=== PATIENT | male | born 1935 | race Caucasian/White ===

== ENCOUNTER 2016-07-01 13:00 | Outpatient (RCR) | payer MEDICARE ==
[~2016-07-01 13:00] MED LIST: /ADVA50050; ADV250INH INH; ASPI81TA63; ASPI81TA85 PO; ATOR40TA PO; BISO5TAB5 PO; FISH500C PO; OMEP20CA3 PO; PLAV75TA38 PO; PRAV40TA; PROA1AER INH; SEPT800T; TYLE325T5 PO; TYLENOL #3; VITA100037 PO; VITMTA PO; ZEBE5TAB; ZOFR20TA PO
== END 2016-07-06 ==
LOC: M PT 13:00
PROVIDERS: ATTEND Family Medicine
DX: Z51.89 Encounter for other specified aftercare (principal); M54.42 Lumbago with sciatica, left side

== ENCOUNTER 2016-07-21 09:18 | Outpatient (RCR) | payer MEDICARE | END 2016-08-03 | LOC: M PT 09:18 | PROVIDERS: ATTEND Family Medicine | DX: Z51.89 Encounter for other specified aftercare (principal); M54.42 Lumbago with sciatica, left side; M51.9 Unspecified thoracic, thoracolumbar and lumbosacral intervertebral disc disorder | CPT/HCPCS: 97110; G8978; G8979 ==

== ENCOUNTER → 2017-03-29 | Outpatient (CLI) | payer MEDICARE ==
[~2017-03-29] MED LIST changes: -ATOR40TA PO; +ATOR40TA75 PO; +PLAV1TAB2 PO; -PLAV75TA38 PO; -PROA1AER INH; +PROAAER10 INH; -VITA100037 PO; +VITA100067 PO
[2017-03-29 17:21] LABS: ALBUMIN 3.8 GM/DL (3.2-5.2); ALBUMIN/GLOBULIN RATIO 1.23 (1.00-1.93); BILIRUBIN,TOTAL 0.4 MG/DL (0.2-1.0); CREATININE FOR GFR 1.62 MG/DL (0.70-1.30); GLOMERULAR FILTRATION RATE 43.5 (>35); POTASSIUM SERUM 4.8 MEQ/L (3.5-5.1); TOTAL PROTEIN 6.9 GM/DL (6.4-8.2)
[2017-03-29 17:30] LABS: MEAN CORPUSCULAR HEMOGLOBIN 32.7 pg (27.0-33.0); MEAN CORPUSCULAR HGB CONC 33.3 g/dl (32.0-36.5); MEAN CORPUSCULAR VOLUME 98.1 fl (80.0-96.0); PLATELET COUNT, AUTOMATED 189 10^3/uL (150-450); RED CELL DISTRIBUTION WIDTH 13.2 % (11.5-14.5); WHITE BLOOD COUNT 6.9 10^3/uL (4.0-10.0)
== END ==
LOC: M LAB 15:46
PROVIDERS: ATTEND Physician Assistant
DX: I25.10 Atherosclerotic heart disease of native coronary artery without angina pectoris (principal); I10 Essential (primary) hypertension; E78.00 Pure hypercholesterolemia, unspecified

== ENCOUNTER → 2017-06-14 | Outpatient (CLI) | payer MEDICARE ==
[2017-06-14 20:44] LABS: URIC ACID 7.3 MG/DL (3.5-7.2)
== END ==
LOC: M WUC 16:34
DX: M79.675 Pain in left toe(s) (principal)
CPT/HCPCS: 84550

== ENCOUNTER → 2017-09-28 | Outpatient (CLI) | payer MEDICARE ==
[2017-09-28 11:14] LABS: ALBUMIN 3.8 GM/DL (3.2-5.2); ALBUMIN/GLOBULIN RATIO 1.27 (1.00-1.93); ALKALINE PHOSPHATASE 63 U/L (45-117); ALT/SGPT 28 U/L (12-78); ANION GAP 7 MEQ/L (8-16); AST/SGOT 21 U/L (7-37); BILIRUBIN,TOTAL 0.7 MG/DL (0.2-1.0); BLOOD UREA NITROGEN 20 MG/DL (7-18); CALCIUM LEVEL 8.8 MG/DL (8.8-10.2); CARBON DIOXIDE LEVEL 26 MEQ/L (21-32); CHLORIDE LEVEL 111 MEQ/L (98-107); CHOLESTEROL LEVEL 97 MG/DL (<200); CHOLESTEROL RISK RATIO 2.365 (<5); CREATININE FOR GFR 1.59 MG/DL (0.70-1.30); GLOMERULAR FILTRATION RATE 44.4 (>35); GLUCOSE, FASTING 112 MG/DL (70-100); HDL CHOLESTEROL 41 MG/DL (>40); LDL CHOLESTEROL 37.8 MG/DL (<100); NON-HDL-C 56 MG/DL; POTASSIUM SERUM 4.5 MEQ/L (3.5-5.1); SODIUM LEVEL 144 MEQ/L (136-145); TOTAL PROTEIN 6.8 GM/DL (6.4-8.2); TRIGLYCERIDES LEVEL 91 MG/DL (<150)
== END ==
LOC: M LAB 09:52
DX: I10 Essential (primary) hypertension (principal)
CPT/HCPCS: 80053

== ENCOUNTER → 2018-02-28 | Outpatient (CLI) | payer MEDICARE ==
[2018-02-28 11:08] LABS: HEMATOCRIT 40.3 % (42.0-52.0); HEMOGLOBIN 13.6 g/dl (13.5-17.5); MEAN CORPUSCULAR HEMOGLOBIN 33.1 pg (27.0-33.0); MEAN CORPUSCULAR HGB CONC 33.7 g/dl (32.0-36.5); MEAN CORPUSCULAR VOLUME 98.1 fl (80.0-96.0); PLATELET COUNT, AUTOMATED 238 10^3/uL (150-450); RED BLOOD COUNT 4.11 10^6/uL (4.30-6.10); RED CELL DISTRIBUTION WIDTH 13.3 % (11.5-14.5); WHITE BLOOD COUNT 7.2 10^3/uL (4.0-10.0)
[2018-02-28 11:51] LABS: ESTIMATED AVERAGE GLUCOSE 111 MG/DL (60-110); HEMOGLOBIN A1c 5.5 %
[2018-02-28 11:52] LABS: ALBUMIN/GLOBULIN RATIO 1.38 (1.00-1.93); ALKALINE PHOSPHATASE 61 U/L (45-117); ALT/SGPT 31 U/L (12-78); ANION GAP 9 MEQ/L (8-16); AST/SGOT 23 U/L (7-37); BILIRUBIN,TOTAL 0.9 MG/DL (0.2-1.0); BLOOD UREA NITROGEN 17 MG/DL (7-18); CARBON DIOXIDE LEVEL 26 MEQ/L (21-32); CHLORIDE LEVEL 107 MEQ/L (98-107); CHOLESTEROL LEVEL 109 MG/DL (<200); CHOLESTEROL RISK RATIO 2.056 (<5); CREATININE FOR GFR 1.46 MG/DL (0.70-1.30); GLUCOSE, FASTING 120 MG/DL (70-100); HDL CHOLESTEROL 53 MG/DL (>40); LDL CHOLESTEROL 35 MG/DL (<100); NON-HDL-C 56 MG/DL; POTASSIUM SERUM 4.6 MEQ/L (3.5-5.1); PROSTATIC SPECIFIC AG MONITOR 1.25 NG/ML (< 4.0); SODIUM LEVEL 142 MEQ/L (136-145); TOTAL PROTEIN 6.9 GM/DL (6.4-8.2); TRIGLYCERIDES LEVEL 104 MG/DL (<150)
[2018-02-28 22:43] LABS: TOTAL 25(OH) VITAMIN D 31.4 NG/ML (30.0-100.0)
== END ==
LOC: M LAB 10:14
DX: I10 Essential (primary) hypertension (principal); N40.1 Benign prostatic hyperplasia with lower urinary tract symptoms; J44.9 Chronic obstructive pulmonary disease, unspecified
CPT/HCPCS: 71046

== ENCOUNTER 2018-08-24 14:35 | Emergency (ER) | payer MEDICARE ==
[~2018-08-24] VITALS: Ht 175.3 cm; Wt 83.4 kg
[~2018-08-24 14:35] MED LIST changes: -/ADVA50050; +ADVA1AER2; -ZOFR20TA PO; +ZOFR4TAB16 PO
[2018-08-24] MEDS ORDERED: AMOX875T PO (14:47)
[2018-08-24] MEDS ORDERED: PRED20TA (14:47)
[2018-08-24 15:32] LABS: VENOUS BASE EXCESS 0.1 (-2.0-2.0); VENOUS HCO3 22.7 MEQ/L (23.0-27.0); VENOUS PARTIAL PRESSURE CO2 31.3 mmHg (38.0-50.0); VENOUS PARTIAL PRESSURE O2 86.7 mmHg (30.0-50.0); VENOUS PH 7.479 UNITS (7.330-7.430); VENOUS STANDARD HCO3 24.6 MEQ/L; VENOUS TOTAL CO2 23.7 MEQ/L (24.0-28.0)
[2018-08-24 15:33] LABS: BASO # 0.1 10^3/uL (0.0-0.2); BASO % 0.2 % (0.0-1.0); EOS # 0.1 10^3/uL (0.0-0.50); EOS % 0.6 % (0.0-3.0); HEMATOCRIT 38.6 % (42.0-52.0); HEMOGLOBIN 12.9 g/dl (13.5-17.5); LYMPH # 0.5 10^3/uL (1.5-4.5); LYMPH % 2.4 % (24.0-44.0); MEAN CORPUSCULAR HEMOGLOBIN 32.5 pg (27.0-33.0); MEAN CORPUSCULAR HGB CONC 33.4 g/dl (32.0-36.5); MEAN CORPUSCULAR VOLUME 97.2 fl (80.0-96.0); MONO # 1.3 10^3/uL (0.0-0.8); MONO % 6.4 % (0.0-5.0); NEUTROPHILS # 18.3 10^3/uL (1.8-7.7); NEUTROPHILS % 89.7 % (36.0-66.0); PLATELET COUNT, AUTOMATED 263 10^3/uL (150-450); RED BLOOD COUNT 3.97 10^6/uL (4.30-6.10); WHITE BLOOD COUNT 20.4 10^3/uL (4.0-10.0)
--- NOTE | 2018-08-24 15:35 | REP ---
Chest one-view HISTORY: Cough Comparison: 02/29/1980 Linear densities are present in the right upper lobe consistent with atelectasis or scar. The left lung is clear. The heart is normal in size. The pulmonary vasculature is normal in appearance. Impression: Right upper lobe atelectasis or scar. Electronically Signed by Elder Garcia MD 08/24/2018 03:26 P
[2018-08-24 15:49] LABS: INR 1.09; PROTHROMBIN TIME 14.2 SECONDS (12.1-14.4)
[2018-08-24 16:04] LABS: INFLUENZA A AMPLIFICATION NEGATIVE (NEGATIVE); INFLUENZA B AMPLIFICATION NEGATIVE (NEGATIVE)
[2018-08-24 16:05] LABS: ALBUMIN 3.5 GM/DL (3.2-5.2); ALT/SGPT 28 U/L (12-78); BILIRUBIN,DIRECT 0.2 MG/DL (0.0-0.2); BLOOD UREA NITROGEN 19 MG/DL (7-18); CALCIUM LEVEL 8.6 MG/DL (8.8-10.2); CARBON DIOXIDE LEVEL 24 MEQ/L (21-32); CHLORIDE LEVEL 105 MEQ/L (98-107); CPK CREATINE PHOSPHOKINASE 53 U/L (39-308); CREATININE FOR GFR 1.42 MG/DL (0.70-1.30); GLOMERULAR FILTRATION RATE 50.6 (>35); GLUCOSE, FASTING 148 MG/DL (70-100); MB/CK RELATIVE INDEX 3.02 (< OR =4); NT-PRO BNP 686 PG/ML (<450); POTASSIUM SERUM 4.4 MEQ/L (3.5-5.1); SODIUM LEVEL 138 MEQ/L (136-145); TOTAL PROTEIN 6.4 GM/DL (6.4-8.2); TROPONIN I < 0.02 NG/ML (< 0.10)
[2018-08-24] MEDS ORDERED: methylPREDNISolone INJ 125 MG/2 ML VIAL (J2930) IV ONE (17:00)
[2018-08-24] MEDS ORDERED: ACETAMINOPHEN TAB 650MG DOSE (2X325MG) PO ONE (17:00)
[2018-08-24] MEDS: IPRATROPIUM 0.5MG/ALBUTEROL 2.5MG INH SOL UD 3ML (DUONEB)(J7620) NEB PRN ×2 (17:05→17:36)
[2018-08-24] MEDS ORDERED: DOXYCYCLINE HYCLATE 100 MG in D5W MINI-BAG PLUS 100 ML IV ONE (17:15)
[2018-08-24] MEDS ORDERED: FISH1200 PO (18:47)
[2018-08-24] MEDS ORDERED: DOXY-350 PO (19:44)
[2018-08-24] MEDS ORDERED: MEDR4PAK PO (19:44)
[2018-08-24 20:00] VITALS: BP 122/57
--- NOTE | 2018-08-25 06:25 | ECGEPIP ---
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
== END 2018-08-24 20:11 | disposition home or self-care (01) ==
LOC: M ED 14:35
DX: J18.9 Pneumonia, unspecified organism (principal); J44.9 Chronic obstructive pulmonary disease, unspecified; I11.9 Hypertensive heart disease without heart failure; K21.9 Gastro-esophageal reflux disease without esophagitis; I25.10 Atherosclerotic heart disease of native coronary artery without angina pectoris; Z79.02 Long term (current) use of antithrombotics/antiplatelets; Z79.82 Long term (current) use of aspirin; Z79.51 Long term (current) use of inhaled steroids; Z79.899 Other long term (current) drug therapy; Z79.2 Long term (current) use of antibiotics
CPT/HCPCS: 71045; 80048; 80076; 82550; 82553; 82803; 83605; 83880; 84443; 84484; 85025; 85610; 87040; 87502; 93005; 93041; 94640; 96365; 96375; 99285; J2930

== ENCOUNTER → 2019-04-10 | Outpatient (CLI) | payer MEDICARE ==
[~2019-04-10] MED LIST changes: +AMOX875T PO; -BISO5TAB5 PO; +BISO5TAB9 PO; +DOXY-350 PO; +FISH1200 PO; +MEDR4PAK PO; -OMEP20CA3 PO; +OMEP20CA4 PO; +PRED20TA
[2019-04-10 10:31] LABS: HEMATOCRIT 41.9 % (42.0-52.0); HEMOGLOBIN 13.6 g/dl (13.5-17.5); MEAN CORPUSCULAR HEMOGLOBIN 32.6 pg (27.0-33.0); MEAN CORPUSCULAR HGB CONC 32.5 g/dl (32.0-36.5); MEAN CORPUSCULAR VOLUME 100.5 fl (80.0-96.0); PLATELET COUNT, AUTOMATED 176 10^3/uL (150-450); RED BLOOD COUNT 4.17 10^6/uL (4.30-6.10); WHITE BLOOD COUNT 10.2 10^3/uL (4.0-10.0)
[2019-04-10 11:01] LABS: ALBUMIN 3.8 GM/DL (3.2-5.2); BILIRUBIN,TOTAL 0.8 MG/DL (0.2-1.0); CHOLESTEROL RISK RATIO 2.333 (<5); CREATININE FOR GFR 1.35 MG/DL (0.70-1.30); GLOMERULAR FILTRATION RATE 53.5 (>35); POTASSIUM SERUM 5.3 MEQ/L (3.5-5.1); TOTAL PROTEIN 6.9 GM/DL (6.4-8.2)
== END ==
LOC: M LAB 09:44
PROVIDERS: ATTEND Physician Assistant
DX: I25.10 Atherosclerotic heart disease of native coronary artery without angina pectoris (principal); I10 Essential (primary) hypertension; E78.00 Pure hypercholesterolemia, unspecified

== ENCOUNTER 2019-04-29 15:32 | Observation (INO) | payer MEDICARE ==
[~2019-04-29] VITALS: Ht 172.7 cm; Wt 81.6 kg
[2019-04-29 16:17] LABS: BASO # 0.1 10^3/uL (0.0-0.2); BASO % 0.6 % (0.0-1.0); EOS # 0.4 10^3/uL (0.0-0.5); EOS % 5.2 % (0.0-3.0); HEMATOCRIT 38.4 % (42.0-52.0); HEMOGLOBIN 12.7 g/dl (13.5-17.5); LYMPH # 1.7 10^3/uL (1.5-5.0); LYMPH % 20.4 % (24.0-44.0); MEAN CORPUSCULAR HGB CONC 33.1 g/dl (32.0-36.5); MEAN CORPUSCULAR VOLUME 99.7 fl (80.0-96.0); MONO # 0.7 10^3/uL (0.0-0.8); MONO % 8.2 % (0.0-5.0); NEUTROPHILS # 5.5 10^3/uL (1.5-8.5); NEUTROPHILS % 65.5 % (36.0-66.0); PLATELET COUNT, AUTOMATED 227 10^3/uL (150-450); RED BLOOD COUNT 3.85 10^6/uL (4.30-6.10); WHITE BLOOD COUNT 8.4 10^3/uL (4.0-10.0)
[2019-04-29 16:38] LABS: ALBUMIN 3.8 GM/DL (3.2-5.2); ALT/SGPT 34 U/L (12-78); BILIRUBIN,DIRECT < 0.1 MG/DL (0.0-0.2); BILIRUBIN,TOTAL 0.5 MG/DL (0.2-1.0); BLOOD UREA NITROGEN 26 MG/DL (7-18); CARBON DIOXIDE LEVEL 28 MEQ/L (21-32); CHLORIDE LEVEL 109 MEQ/L (98-107); CK-MB VALUE MASS 1.2 NG/ML (<3.6); CPK CREATINE PHOSPHOKINASE 50 U/L (39-308); CREATININE FOR GFR 1.52 MG/DL (0.70-1.30); GLOMERULAR FILTRATION RATE 46.6 (>35); GLUCOSE, FASTING 118 MG/DL (70-100); POTASSIUM SERUM 4.6 MEQ/L (3.5-5.1); SODIUM LEVEL 144 MEQ/L (136-145); TOTAL PROTEIN 7.1 GM/DL (6.4-8.2); TROPONIN I < 0.02 NG/ML (< 0.10)
[2019-04-29 16:45] LABS: INR 1.04; PROTHROMBIN TIME 13.3 SECONDS (11.8-14.0)
[2019-04-29 16:46] LABS: PARTIAL THROMBOPLASTIN TIME 39.4 SECONDS (25.0-38.4)
[2019-04-29] MEDS ORDERED: FLUT1BLS2 INH (17:35)
[2019-04-29] MEDS ORDERED: VITA100054 PO (17:38)
[2019-04-29] MEDS ORDERED: NITR4TASL SL (17:38)
[2019-04-29] MEDS ORDERED: NITROGLYCERIN 0.4 MG SUBL TABLET SL PRN (18:45)
--- NOTE | 2019-04-29 19:27 | HPEPDOC ---
[facility] Medical History & Physical Date of Admission Apr 29, 2019 Date of Service: Apr 29, 2019 Attending Physician: TAYLOR CERVANTES MD History and Physical CHIEF COMPLAINT: Confusion HISTORY OF PRESENT ILLNESS: 83-year-old male with past medical history of coronary artery disease status post CABG, [place], hypertension and hyperlipidemia presents from home with confusion for the past 24-48 hours. As per , patient started having confusion consistent with decreased cognitive ability. She reports he usually does puzzles really well, was having significant difficulty, which she has never noticed before. He was also having difficulty remembering how to drive a car. Patient reports he is unclear of the symptoms. He's been expressing, currently is symptomatically. Patient and report that he has never had similar symptoms in the past, no history of TIA or stroke. Patient denies any weakness, numbness, tingling, speech difficulty, vision disturbances or headaches. He denies any shortness of breath, chest pain, nausea, vomiting or Doppler diarrhea at this time. 10 point review of system is negative except for above PAST MEDICAL HISTORY: 1. Coronary artery disease. 2. Myocardial ischemia. 3. Hypertension. 4. Hyperlipidemia PAST SURGICAL HISTORY: 1. Carotid endarterectomy. 2. Coronary artery bypass graft. 3. Cholecystectomy. SOCIAL HISTORY: Never smoker. Social use. Denies drug use FAMILY HISTORY: Positive for heart disease ALLERGIES: Please see below. HOME MEDICATIONS: Please see below. PHYSICAL EXAMINATION: VITAL SIGNS: Please see below. GENERAL: No distress HEENT: Normocephalic, atraumatic, moist mucous membranes NECK: Supple CARDIOVASCULAR EXAMINATION: S1, S2, no murmurs RESPIRATORY EXAMINATION: Clear to auscultation, no wheezing ABDOMINAL EXAMINATION: Soft, nontender, nondistended, positive bowel sounds EXTREMITIES: Range of motion intact SKIN: No rash NEUROLOGICAL EXAMINATION: Alert and oriented 3, no focal deficits PSYCHIATRIC EXAMINATION: Calm and cooperative LABORATORY DATA: See below. IMAGING: CT head pending read MICROBIOLOGY: Please see below. ASSESSMENT: 83-year-old male with past medical history of coronary artery disease, [place], status post CABG, hypertension, hyperlipidemia, presents with symptoms concerning for stroke. PLAN: 1. CVA. CT head read pending, MRI, MRA head, carotid Doppler, TTE ordered. PT/OT/swallow eval pending. Continue home aspirin, Plavix and statin. Neurology consulted by ED, eval pending Allow permissive hypertension 2. Coronary artery disease. Stable, continue him [facility] management (aspirin, Plavix, statin) 3. Hyperlipidemia. Continue statin. 4. Hypertension. Continue home meds DVT progresses: Heparin subcutaneous GI for flex: Not needed Vital Signs Vital Signs Date Time Temp Pulse Resp B/P (MAP) Pulse Ox O2 Delivery O2 Flow Rate FiO2 04/29/19 18:02 65 04/29/19 18:00 177/76 (109) 04/29/19 17:02 98 04/29/19 17:00 18 Room Air 04/29/19 15:33 96.9 Laboratory Data Labs 24H Laboratory Tests 2 04/29/19 15:46: Immature Granulocyte % (Auto) 0.1, Neutrophils (%) (Auto) 65.5, Lymphocytes (%) (Auto) 20.4L, Monocytes (%) (Auto) 8.2H, Eosinophils (%) (Auto) 5.2H, Basophils (%) (Auto) 0.6, Neutrophils # (Auto) 5.5, Lymphocytes # (Auto) 1.7, Monocytes # (Auto) 0.7, Eosinophils # (Auto) 0.4, Basophils # (Auto) 0.1, Nucleated Red Blood Cells % (auto) 0.0, Prothrombin Time 13.3, Prothromb Time International Ratio 1.04, Activated Partial Thromboplast Time 39.4H, Anion Gap 7L, Glomerular Filtration Rate 46.6, Calcium Level 9.0, Total Bilirubin 0.5, Direct Bilirubin < 0.1, Aspartate Amino Transf (AST/SGOT) 23, Alanine Aminotransferase (ALT/SGPT) 34, Alkaline Phosphatase 77, Total Creatine Kinase 50, Creatine Kinase MB 1.2, Creatine Kinase MB Relative Index 2.40, Troponin I < 0.02, Total Protein 7.1, Albumin 3.8, Albumin/Globulin Ratio 1.15, Thyroid Stimulating Hormone (TSH) 5.170H 04/29/19 17:02: Bedside Prothrombin Time INR 1.0, Prothrombin Time (MISC) 11.9L, Bedside Glucose (Misc Panel) 98 CBC/BMP Laboratory Tests 04/29/19 15:46 Home Medications Scheduled Aspirin (Aspir 81) 81 Mg Tab, 81 MG PO DAILY Atorvastatin Calcium (Atorvastatin Calcium) 40 Mg Tab, 40 MG PO QHS Cholecalciferol (Vitamin D3) (Vitamin D3) 1,000 Unit Capsule, 1,000 UNIT PO DAILY Clopidogrel Bisulfate (Plavix) 75 Mg Tab, 75 MG PO DAILY Fluticasone Propion/Salmeterol (Wixela 250-50 Inhub) 1 Each Blst.w.dev, 1 EACH INH BID Multivitamins (Thera M Plus Tablet) 1 Tab Tab, 1 TAB PO DAILY Scheduled PRN Albuterol Sulfate (Proair Hfa) 108 Mcg/Act Aer, 2 PUFFS INH Q4H PRN for SHORTNESS OF BREATH Nitroglycerin (Nitrostat) 0.4 Mg Tab.subl, 0.4 MG SL Q5MP PRN for CHEST PAIN Allergies Coded Allergies: No Known Allergies (Unverified , 04/29/19) A-FIB/CHADSVASC A-FIB History Current/History of A-Fib/PAF?: No TAYLOR CERVANTES MD Apr 29, 2019 19:22
--- NOTE | 2019-04-29 19:28 | ECGEPIP ---
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
[2019-04-29] MEDS ORDERED: WIXELA INH SCH (21:00)
--- NOTE | 2019-04-29 22:34 | REPVR ---
PROCEDURE INFORMATION: Exam: US Duplex Bilateral Extracranial Arteries Exam date and time: 04/29/2019 9:42 PM Age: 83 years old Clinical history: Altered mental status/memory loss; Confusion or disorientation; Prior surgery; Surgery date: 6+ months; Surgery type: RT endarterectomy; Additional info: CVA TECHNIQUE: Imaging protocol: Real-time Duplex ultrasound scan of the bilateral carotid and vertebral arteries combining oneil scale, color Doppler and spectral waveform analysis. Bilateral exam. COMPARISON: No relevant prior studies available. FINDINGS: Right common carotid artery: Unremarkable. No occlusion or significant stenosis. Waveforms are normal. Peak systolic velocity of 117.8 cm/s. Right internal carotid artery: Unremarkable. No occlusion or significant stenosis. Waveforms are normal. Peak systolic velocity of 154.9 cm/s, but without any significant plaque visualized in the grayscale images. Right ICA/CCA ratio: 1.31. Within normal limits. Right external carotid artery: No significant stenosis in the origin. Peak systolic velocity of 188.8 cm/s, but without any significant plaque visualized in the grayscale images. Right vertebral artery: Unremarkable. Antegrade flow. Peak systolic velocity of 47.6 cm/s. Left common carotid artery: Calcified atherosclerotic plaque is seen causing mild stenosis in the grayscale images. Waveforms are normal. Peak systolic velocity of 81.1 cm/s. Left internal carotid artery: Calcified atherosclerotic plaque is noted in the proximal portion of the left internal carotid artery, causing moderate stenosis based on peak systolic velocity criteria. Waveforms are normal. Peak systolic velocity of 181.7 cm/s. Left ICA/CCA ratio: 2.24, which is abnormally increased. Left external carotid artery: No significant stenosis in the origin. Peak systolic velocity of 254.1 cm/s, but without any significant plaque visualized in the grayscale images. Left vertebral artery: Unremarkable. Antegrade flow. Peak systolic velocity of 69.6 cm/s. IMPRESSION: 1. Moderate (50-69%) stenosis of the proximal portion of the left internal carotid artery. 2. Mild (<50%) stenosis of the left common carotid artery. 3. No significant stenosis or occlusion of the right carotid arteries. COMMENT: Carotid Stenosis Reference using SRU criteria: Mild: less than 50% stenosis. ICA PSV is less than 125 cm/second and plaque or intimal thickening is visible. Moderate: 50-69% stenosis. ICA PSV is 125 to 230 cm/second and plaque is visible. Severe: 70-94% stenosis. ICA PSV is more than 230 cm/second and visible plaque and lumen narrowing are seen. Near occlusion: 95-99% stenosis. ICA PSV is variable and significant plaque and luminal narrowing are seen. Occluded: 100% stenosis. No flow identified. Electronically signed by: Brock Latham On 04/29/2019 22:34:25 PM
[2019-04-29 23:30] VITALS: BP 160/70
[2019-04-29] MEDS: ATORVASTATIN 20 MG TAB PO SCH (23:47)
[2019-04-29] MEDS: HEPARIN SOD (PORCINE) 5000 UNITS/ML VIAL SC SCH (23:48)
[2019-04-30 01:09] LABS: MAGNESIUM LEVEL 2.1 MG/DL (1.8-2.4)
[2019-04-30 04:00] VITALS: BP 110/51
[2019-04-30 07:56] LABS: ALBUMIN 3.4 GM/DL (3.2-5.2); BILIRUBIN,TOTAL 0.6 MG/DL (0.2-1.0); CALCIUM LEVEL 8.6 MG/DL (8.8-10.2); CREATININE FOR GFR 1.62 MG/DL (0.70-1.30); GLOMERULAR FILTRATION RATE 43.3 (>35); MAGNESIUM LEVEL 2.1 MG/DL (1.8-2.4); POTASSIUM SERUM 4.4 MEQ/L (3.5-5.1); TOTAL PROTEIN 6.4 GM/DL (6.4-8.2)
[2019-04-30 08:00] VITALS: BP 136/64
--- NOTE | 2019-04-30 08:00 | REP ---
Clinical: Cerebrovascular accident . Comparison: 08/24/2018 . Findings: The mediastinum and cardiac silhouette are stable and within normal limits for portable technique. Prior sternotomy and CABG again noted. The lung nunes demonstrate chronic changes without acute consolidation, effusion, or pneumothorax. Skeletal structures are intact. Impression: No acute cardiopulmonary process appreciated. Electronically Signed by Chacorta Godinez MD 04/30/2019 07:52 A
[2019-04-30] MEDS: IPRATROPIUM 0.5MG/ALBUTEROL 2.5MG INH SOL UD 3ML (DUONEB)(J7620) NEB SCH ×4 (08:17→18:39)
[2019-04-30 08:21] LABS: HEMATOCRIT 35.3 % (42.0-52.0); HEMOGLOBIN 11.4 g/dl (13.5-17.5); MEAN CORPUSCULAR HEMOGLOBIN 31.9 pg (27.0-33.0); MEAN CORPUSCULAR HGB CONC 32.3 g/dl (32.0-36.5); MEAN CORPUSCULAR VOLUME 98.9 fl (80.0-96.0); PLATELET COUNT, AUTOMATED 192 10^3/uL (150-450); RED BLOOD COUNT 3.57 10^6/uL (4.30-6.10); WHITE BLOOD COUNT 7.2 10^3/uL (4.0-10.0)
--- NOTE | 2019-04-30 08:39 | REP ---
REASON: Altered mental status which has now resolved. There are no priors for comparison. There is an area of decreased density in the left parietal lobe near the frontal parietal watershed area. The ventricles and sulci are within normal limits. There is no evidence of an acute intracranial hemorrhage. There is no shift if the midline structures. There are no extra-axial fluid collections. There are carotid siphon calcifications. Scattered diffuse lucency is seen throughout the deep cerebral white matter. IMPRESSION: 1. Age undetermined non-hemorrhagic infarction is suspected on the left in the frontal parietal watershed region. 2. Deep white matter ischemic changes. 3. Other findings as described above. Electronically Signed by Isma Chaney DO 04/30/2019 12:11 P
[2019-04-30] MEDS: NS 1,000 ML IV SCH (09:00)
[2019-04-30] MEDS: ASPIRIN 81 MG ENTERIC TAB PO SCH (09:17)
[2019-04-30] MEDS: HEPARIN SOD (PORCINE) 5000 UNITS/ML VIAL SC SCH ×2 (09:17→21:23)
[2019-04-30] MEDS: MULTIVITAMINS/MINERALS THERAP 1 TAB PO SCH (09:17)
[2019-04-30] MEDS: CLOPIDOGREL 75 MG TAB PO SCH (09:17)
[2019-04-30] MEDS: VITAMIN D 1,000 INTERNATIONAL UNITS TABLET PO SCH (09:17)
[2019-04-30 12:00] VITALS: BP 144/68
[2019-04-30 16:00] VITALS: BP 138/88
[2019-04-30] MEDS: ADVAIR HFA 115/21MCG INHALER INH SCH (18:46)
[2019-04-30 20:00] VITALS: BP 156/58
--- NOTE | 2019-04-30 20:25 | REPVR ---
PROCEDURE INFORMATION: Exam: MR Head Without Contrast Exam date and time: 04/30/2019 7:24 PM Age: 83 years old Clinical history: Alteration of consciousness; Transient alteration of awareness; Patient HX: Confusion, loss of cognitive function that have since subsided; Additional info: CVA TECHNIQUE: Imaging protocol: MR of the head without contrast. COMPARISON: CT Head without contrast 2019-04-29 16:17 FINDINGS: Brain: Evolving acute small to medium-sized left parietal cortical and subcortical and deep white matter infarct. Moderate cerebral volume loss and chronic white matter disease. Couple small acute infarcts in the posterior left perisylvian cortex in the left parietal and temporal lobes. Couple small basal ganglia and periventricular chronic lacunar infarcts. No midline shift, mass, fluid collection, or evidence of hemorrhage. Ventricles: Normal. No ventriculomegaly. Bones/joints: Unremarkable. Soft tissues: Unremarkable. Sinuses: Normal as visualized. No acute sinusitis. Mastoid air cells: Trace left mastoid effusion. Orbits: Evidence of previous ocular surgery with intraocular lens implants. IMPRESSION: 1. Evolving acute small to medium-sized left parietal cortical and subcortical and deep white matter infarct. 2. Couple small acute infarcts in the posterior left perisylvian cortex in the left parietal and temporal lobes. Electronically signed by: Errol Jimenes On 04/30/2019 20:25:22 PM
--- NOTE | 2019-04-30 20:27 | REPVR ---
PROCEDURE INFORMATION: Exam: MR Angiogram Head Without Contrast, Arteries Exam date and time: 04/30/2019 7:24 PM Age: 83 years old Clinical history: Cognitive deficit; Type not specified; Patient HX: Confusion, loss of cognitive function that have since subsided; Additional info: CVA TECHNIQUE: Imaging protocol: MR angiogram head without contrast. Exam focused on the arteries. 3D rendering: MIP reconstructed images were created and reviewed. COMPARISON: CT Head without contrast 2019-04-29 16:17 FINDINGS: Right internal carotid artery: Mild cavernous and supraclinoid right internal carotid artery atherosclerotic plaque and stenosis. Right anterior cerebral artery: Unremarkable. No occlusion or significant stenosis. No aneurysm. Right middle cerebral artery: Unremarkable. No occlusion or significant stenosis. No aneurysm. Right posterior cerebral artery: Unremarkable. No occlusion or significant stenosis. No aneurysm. Right vertebral artery: Unremarkable. No occlusion or significant stenosis. No aneurysm. Left internal carotid artery: Mild cavernous and supraclinoid left internal carotid artery atherosclerotic plaque and stenosis. Left anterior cerebral artery: Unremarkable. No occlusion or significant stenosis. No aneurysm. Left middle cerebral artery: Unremarkable. No occlusion or significant stenosis. No aneurysm. Left posterior cerebral artery: Unremarkable. No occlusion or significant stenosis. No aneurysm. Left vertebral artery: Unremarkable. No occlusion or significant stenosis. No aneurysm. Basilar artery: Fenestrated basilar artery normal anterior communicating artery. IMPRESSION: No acute abnormality. Major branches included in the [id number] are patent. Electronically signed by: Errol Jimenes On 04/30/2019 20:27:10 PM
--- NOTE | 2019-04-30 20:27 | IPNPDOC ---
Date Seen The patient was seen on 04/30/19. Progress Note HISTORY OF PRESENT ILLNESS: 83-year-old male with past medical history of coronary artery disease status post CABG, [place], hypertension and hyperlipidemia presents from home with confusion for the past 24-48 hours. As per , patient started having confusion consistent with decreased cognitive ability. She reports he usually does puzzles really well, was having significant difficulty, which she has never noticed before. He was also having difficulty remembering how to drive a car. Patient reports he is unclear of the symptoms. He's been expressing, currently is symptomatically. Patient and report that he has never had similar symptoms in the past, no history of TIA or stroke. Patient denies any weakness, numbness, tingling, speech difficulty, vision disturbances or headaches. He denies any shortness of breath, chest pain, nausea, vomiting or Doppler diarrhea at this time. 04/30/2019 Patient reports improvement in confusion, without any complaints at time, tolerating diet, working with PT. 10 point review of system is negative except for above HOME MEDICATIONS: Please see below. PHYSICAL EXAMINATION: VITAL SIGNS: Please see below. GENERAL: No distress HEENT: Normocephalic, atraumatic, moist mucous membranes NECK: Supple CARDIOVASCULAR EXAMINATION: S1, S2, no murmurs RESPIRATORY EXAMINATION: Clear to auscultation, no wheezing ABDOMINAL EXAMINATION: Soft, nontender, nondistended, positive bowel sounds EXTREMITIES: Range of motion intact SKIN: No rash NEUROLOGICAL EXAMINATION: Alert and oriented 3, no focal deficits PSYCHIATRIC EXAMINATION: Calm and cooperative LABORATORY DATA: See below. IMAGING: CT head pending read MICROBIOLOGY: Please see below. ASSESSMENT: 83-year-old male with past medical history of coronary artery disease, [place], status post CABG, hypertension, hyperlipidemia, presents with symptoms concerning for stroke. PLAN: 1. CVA. CT head with age undetermined stroke, MRI and MRA head pending, carotid Doppler with moderate stenosis, TTE pending PT/OT/swallow eval appreciated Continue home aspirin, Plavix and statin. Allow permissive hypertension 2. Coronary artery disease. Stable, continue medical management (aspirin, Plavix, statin) 3. Hyperlipidemia. Continue statin. 4. Hypertension. Continue home meds DVT progresses: Heparin subcutaneous GI for flex: Not needed VS, I&O, 24H, Fishbone Vital Signs/I&O Vital Signs Date Time Temp Pulse Resp B/P (MAP) Pulse Ox O2 Delivery O2 Flow Rate FiO2 04/30/19 16:00 98.2 62 17 138/88 (105) 92 Room Air I&O- Last 24 Hours up to 6 AM 04/30/19 06:00 Intake Total 0 ml Balance 0 ml Laboratory Data 24H LABS Laboratory Tests 2 04/30/19 04:33: Nucleated Red Blood Cells % (auto) 0.0 04/30/19 04:34: Anion Gap 7L, Glomerular Filtration Rate 43.3, Calcium Level 8.6L, Magnesium Level 2.1, Total Bilirubin 0.6, Aspartate Amino Transf (AST/SGOT) 16, Alanine Aminotransferase (ALT/SGPT) 27, Alkaline Phosphatase 59, Total Protein 6.4, Albumin 3.4, Albumin/Globulin Ratio 1.13 CBC/BMP Laboratory Tests 04/30/19 04:33 04/30/19 04:34 TAYLOR CERVANTES MD Apr 30, 2019 20:27
[2019-04-30] MEDS: ATORVASTATIN 20 MG TAB PO SCH (21:23)
[2019-04-30 23:35] VITALS: BP 134/60
[2019-05-01] MEDS: NS 1,000 ML IV SCH ×2 (01:04→13:02)
[2019-05-01 04:00] VITALS: BP 145/65
[2019-05-01 05:42] LABS: HEMATOCRIT 34.5 % (42.0-52.0); MEAN CORPUSCULAR HEMOGLOBIN 32.2 pg (27.0-33.0); MEAN CORPUSCULAR HGB CONC 31.9 g/dl (32.0-36.5); MEAN CORPUSCULAR VOLUME 100.9 fl (80.0-96.0); PLATELET COUNT, AUTOMATED 163 10^3/uL (150-450); RED BLOOD COUNT 3.42 10^6/uL (4.30-6.10); WHITE BLOOD COUNT 5.2 10^3/uL (4.0-10.0)
[2019-05-01 06:10] LABS: CALCIUM LEVEL 8.1 MG/DL (8.8-10.2); CREATININE FOR GFR 1.43 MG/DL (0.70-1.30); FREE T4 0.93 NG/DL (0.76-1.46); MAGNESIUM LEVEL 2.1 MG/DL (1.8-2.4); POTASSIUM SERUM 4.5 MEQ/L (3.5-5.1)
[2019-05-01] MEDS: ADVAIR HFA 115/21MCG INHALER INH SCH ×2 (07:18→18:26)
[2019-05-01] MEDS: IPRATROPIUM 0.5MG/ALBUTEROL 2.5MG INH SOL UD 3ML (DUONEB)(J7620) NEB SCH ×3 (07:18→18:26)
[2019-05-01 08:00] VITALS: BP 128/62
[2019-05-01] MEDS: ASPIRIN 81 MG ENTERIC TAB PO SCH (08:42)
[2019-05-01] MEDS: HEPARIN SOD (PORCINE) 5000 UNITS/ML VIAL SC SCH ×2 (08:42→21:02)
[2019-05-01] MEDS: VITAMIN D 1,000 INTERNATIONAL UNITS TABLET PO SCH (08:42)
[2019-05-01] MEDS: CLOPIDOGREL 75 MG TAB PO SCH (08:42)
[2019-05-01] MEDS: MULTIVITAMINS/MINERALS THERAP 1 TAB PO SCH (08:42)
[2019-05-01 12:00] VITALS: BP 128/48
[2019-05-01] MEDS: METOPROLOL TART 12.5 MG PER 1/2 TAB PO SCH ×2 (13:02→21:02)
[2019-05-01 16:00] VITALS: BP 130/58
--- NOTE | 2019-05-01 18:11 | ECHO ---
DATE OF PROCEDURE: 05/01/2019 REFERRING PHYSICIAN: Dr. Luna Chandler INDICATION: Acute stroke, unspecified. HEIGHT: 173 cm WEIGHT: 82 kg 2D MEASUREMENTS: Aortic root: 3.3 cm Left atrium: 4.1 cm Ventricular septum: 0.90 cm Posterior wall: 0.93 cm Left ventricle diastole: 5.4 cm LVOT: 2.2 cm Inferior vena cava: 1.2 cm with more than 50% respiratory variation. DOPPLER MEASUREMENTS: Aortic valve velocity: 113 cm/s LVOT velocity: 60.9 cm/s LVOT VTI: 15.3 cm No aortic stenosis. No aortic regurgitation. No mitral regurgitation. No mitral stenosis. Mitral E velocity: 84.4 cm/s Mitral A velocity: 101 cm/s Mitral deceleration time: 120 cm/s Trace tricuspid regurgitation. Mild pulmonic regurgitation. Pulmonary artery systolic pressure 33 mmHg by pulmonary acceleration time method. DESCRIPTION: Rhythm was sinus with frequent premature ventricular contractions (PVCs). This was a moderately technically difficult echocardiogram. This was a 2D, M-mode, color flow Doppler and pulse wave Doppler examination that included mitral annular tissue Doppler. CONCLUSIONS: 1. Normal left ventricle internal dimensions and wall thickness. Normal regional left ventricle (LV) wall motion and wall thickening. Normal LV systolic function. Left ventricular ejection fraction (LVEF) 65% by visual estimate. Grade 1 LV diastolic dysfunction. Suggestive of elevated left ventricle end-diastolic pressure (D-notch mitral valve M-mode pattern suggests elevated left ventricular end diastolic pressure). 2. Very mild aortic valve sclerosis of a three-cuspid aortic valve. 3. Mild mitral annular calcification. No mitral regurgitation. 4. Suggestive of very mild elevation of pulmonary artery systolic pressure. 5. Suggestive of normal central venous pressure. 6. No definite cardiac source of systemic embolism identified.
--- NOTE | 2019-05-01 18:50 | IPNPDOC ---
Date Seen The patient was seen on 05/01/19. Progress Note HISTORY OF PRESENT ILLNESS: 83-year-old male with past medical history of coronary artery disease status post CABG, [place], hypertension and hyperlipidemia presents from home with confusion for the past 24-48 hours. As per , patient started having confusion consistent with decreased cognitive ability. She reports he usually does puzzles really well, was having significant difficulty, which she has never noticed before. He was also having difficulty remembering how to drive a car. Patient reports he is unclear of the symptoms. He's been expressing, currently is symptomatically. Patient and report that he has never had similar symptoms in the past, no history of TIA or stroke. Patient denies any weakness, numbness, tingling, speech difficulty, vision disturbances or headaches. He denies any shortness of breath, chest pain, nausea, vomiting or Doppler diarrhea at this time. 04/30/2019 Patient reports improvement in confusion, without any complaints at time, tolerating diet, working with PT. 05/01/2019 Patient comfortable, without any complaints, continues to have mild confus ion/difficulty word finding. He denies any weakness, evaluated and cleared by physical therapy. 10 point review of system is negative except for above HOME MEDICATIONS: Please see below. PHYSICAL EXAMINATION: VITAL SIGNS: Please see below. GENERAL: No distress HEENT: Normocephalic, atraumatic, moist mucous membranes NECK: Supple CARDIOVASCULAR EXAMINATION: S1, S2, no murmurs RESPIRATORY EXAMINATION: Clear to auscultation, no wheezing ABDOMINAL EXAMINATION: Soft, nontender, nondistended, positive bowel sounds EXTREMITIES: Range of motion intact SKIN: No rash NEUROLOGICAL EXAMINATION: Alert and oriented 3, no focal deficits PSYCHIATRIC EXAMINATION: Calm and cooperative LABORATORY DATA: See below. IMAGING: CT head pending read MICROBIOLOGY: Please see below. ASSESSMENT: 83-year-old male with past medical history of coronary artery disease, [place], status post CABG, hypertension, hyperlipidemia, presents with symptoms concerning for stroke. PLAN: 1. Acute evolving CVA CT head with age undetermined stroke, MRI with acute evolving CVA in the left parietal cortical and subcortical deep white matter, carotid Doppler with moderate stenosis, TTE normal. Patient with poor oral intake with acute kidney injury, likely due to dehydration, hypotension as possible etiology for acute stroke as it is in the watershed area. PT/OT/swallow eval appreciated Continue home aspirin, Plavix and statin. Neurology eval pending 2. Coronary artery disease. continue medical management (aspirin, Plavix, statin) Having nonsustained V. tach, start low-dose beta estefania, metoprolol 12.5 mg twice a day. 3. Hyperlipidemia. Continue statin. 4. Hypertension. Continue home meds DVT progresses: Heparin subcutaneous GI for flex: Not needed VS, I&O, 24H, Fishbone Vital Signs/I&O Vital Signs Date Time Temp Pulse Resp B/P (MAP) Pulse Ox O2 Delivery O2 Flow Rate FiO2 05/01/19 16:00 97.3 57 18 130/58 (82) 98 Room Air I&O- Last 24 Hours up to 6 AM 05/01/19 06:00 Intake Total 1360 ml Output Total 150 ml Balance 1210 ml Laboratory Data 24H LABS Laboratory Tests 2 05/01/19 05:17: Nucleated Red Blood Cells % (auto) 0.0, Anion Gap 7L, Glomerular Filtration Rate 50.0, Calcium Level 8.1L, Magnesium Level 2.1, Free Thyroxine 0.93 CBC/BMP Laboratory Tests 05/01/19 05:17 TAYLOR CERVANTES MD May 01, 2019 18:50
[2019-05-01 20:00] VITALS: BP 146/67
[2019-05-01] MEDS: ATORVASTATIN 20 MG TAB PO SCH (21:02)
[2019-05-02] MEDS: NS 1,000 ML IV SCH (01:22)
[2019-05-02 04:00] VITALS: BP 144/67
[2019-05-02 05:38] LABS: HEMATOCRIT 34.5 % (42.0-52.0); HEMOGLOBIN 10.9 g/dl (13.5-17.5); MEAN CORPUSCULAR HEMOGLOBIN 32.4 pg (27.0-33.0); MEAN CORPUSCULAR HGB CONC 31.6 g/dl (32.0-36.5); MEAN CORPUSCULAR VOLUME 102.7 fl (80.0-96.0); PLATELET COUNT, AUTOMATED 163 10^3/uL (150-450); RED BLOOD COUNT 3.36 10^6/uL (4.30-6.10); WHITE BLOOD COUNT 5.9 10^3/uL (4.0-10.0)
[2019-05-02 06:02] LABS: CALCIUM LEVEL 8.1 MG/DL (8.8-10.2); CREATININE FOR GFR 1.33 MG/DL (0.70-1.30); GLOMERULAR FILTRATION RATE 54.4 (>35); POTASSIUM SERUM 4.4 MEQ/L (3.5-5.1)
--- NOTE | 2019-05-02 06:28 | CR ---
DATE OF CONSULTATION: 05/01/2019 REFERRING PHYSICIAN: Dr. Luna Chandler REASON FOR CONSULTATION: Stroke. HISTORY OF PRESENT ILLNESS: Robert Montez is an 83-year-old man with history of coronary artery disease, coronary artery bypass graft, hypertension, and dyslipidemia who presented to [facility] due to confusion. The patient lives with his sister. The sister was present in the room. The patient feels significantly better compared to when he came in. He states that he dropped off his sister at the store and was trying to park the car, but did not park the car properly. When he tried starting the car, he could not start the car. He had the car parked in and reverse when he turned it off and when he tried turning it back on it would not start and he could not figure it out. It was unusual for him. He usually does crossword puzzles really well, but had significant difficulty that day. His sister brought him to [facility]. He was having trouble remembering as well. He denies any numbness, weakness of arms and legs, dysphagia, dysarthria, diplopia, urinary incontinence, falls, or loss of consciousness. DIAGNOSTIC STUDIES: MRI scan of brain showed a small-medium left parietal acute ischemic stroke. MRA of brain was unremarkable. Carotid ultrasound showed 50-69% left internal carotid artery stenosis and normal right internal carotid artery. His telemetry showed sinus rhythm with a few PVCs. Hemoglobin was 11.4, platelet count was 163, creatinine 1.43, and TSH 5.17. PAST MEDICAL HISTORY: Coronary artery disease, dyslipidemia, hypertension, right carotid endarterectomy in [id number], coronary artery bypass graft, cholecystectomy. SOCIAL HISTORY: He never smoked. He denies alcohol or illicit drugs. FAMILY HISTORY: Significant for heart disease. He lives with his sister. REVIEW OF SYSTEMS: All systems were reviewed and found to be noncontributory except as mentioned in history of present illness. HOME MEDICATIONS: Aspirin 81 mg by mouth daily, Plavix 75 mg by mouth daily, Lipitor 40 mg by mouth daily, multivitamin one tablet by mouth daily, albuterol inhaler, and nitroglycerin. ALLERGIES: None. PHYSICAL EXAMINATION: Temperature 97.3, pulse 57, respiratory rate 18, blood pressure 130/58, 98% saturation on room air. Heart: Regular rate and rhythm. Lungs: Clear to auscultation. Abdomen: Soft, nontender, nondistended. No pedal edema. No musculoskeletal abnormalities. No rash. No signs of meningeal irritation. The patient is awake, alert, oriented to name of place, person, city, state, country, president, month, year, day of week. He was unable to tell me the exact date. He is able to read and write. Normal speech, comprehension and repetition. Extraocular muscles are intact. No nystagmus. Visual nunes are full to confrontation. No facial weakness. Tongue and uvula are midline. 5/5 strength in all four extremities. Deep tendon flexes 2+ throughout. Normal sensation throughout. Gait was not tested. No dysmetria. ASSESSMENT: 1. Left parietal small-medium acute ischemic stroke. 2. 50-69% left internal carotid artery stenosis and patient is status post right carotid endarterectomy in the past. 3. Dyslipidemia and coronary artery disease. PLAN: 1. Continue aspirin 81 mg by mouth daily and Plavix 75 mg by mouth daily. 2. Lipitor 40 mg by mouth daily. 3. Follow with our office in 2-3 weeks after hospital discharge. He will follow up with his vascular surgeon at [facility] who has been following his left carotid stenosis for several years.
[2019-05-02] MEDS: IPRATROPIUM 0.5MG/ALBUTEROL 2.5MG INH SOL UD 3ML (DUONEB)(J7620) NEB SCH ×2 (07:13→13:44)
[2019-05-02] MEDS: ADVAIR HFA 115/21MCG INHALER INH SCH (07:14)
[2019-05-02 08:00] VITALS: BP 129/61
[2019-05-02] MEDS ORDERED: SLF 3 ML SYR IV PRN (08:30)
[2019-05-02 09:02] VITALS: BP 129/61
[2019-05-02] MEDS: HEPARIN SOD (PORCINE) 5000 UNITS/ML VIAL SC SCH (09:02)
[2019-05-02] MEDS: ASPIRIN 81 MG ENTERIC TAB PO SCH (09:02)
[2019-05-02] MEDS: VITAMIN D 1,000 INTERNATIONAL UNITS TABLET PO SCH (09:02)
[2019-05-02] MEDS: CLOPIDOGREL 75 MG TAB PO SCH (09:02)
[2019-05-02] MEDS: METOPROLOL TART 12.5 MG PER 1/2 TAB PO SCH (09:02)
[2019-05-02] MEDS: MULTIVITAMINS/MINERALS THERAP 1 TAB PO SCH (09:03)
--- NOTE | 2019-05-02 13:45 | DS.PDOC ---
Discharge Summary General Date of Admission Apr 29, 2019 at 15:33 Date of Discharge 05/02/2019 Attending Physician: TAYLOR CERVANTES MD Discharge Summary PROCEDURES PERFORMED DURING STAY: None. ADMITTING DIAGNOSES: 1. Acute CVA. DISCHARGE DIAGNOSES: 1. Acute CVA. COMPLICATIONS/CHIEF COMPLAINT: Cad;Hld;Hx Of Cabg;Hypertension;Myocardial Ischema. HISTORY OF PRESENT ILLNESS: 83-year-old male, past medical history of coronary artery disease status post CABG, hypertension, hyperlipidemia and myocardial ischemia was admitted for symptoms concerning of stroke. He was having symptoms of confusion for the past 2-3 days, CT head in the ED showed age undetermined stroke. Subsequent MRI showed acute evolving stroke in the left parietal cortical and subcortical deep white matter. Patient was taken aspirin, Plavix, atorvastatin, the outpatient setting, had poor oral intake and acute kidney injury upon presentation. Given stroke's location in the watershed area, possibly due to transient hypotension. Patient evaluated by neurology, no changes made to patient's regimen, he is to continue aspirin, Plavix, atorvastatin with outpatient follow-up in neurology and vascular surgeon for his carotid stenosis. Patient was evaluated by cleared by physical therapy, clinically and hemodynamically stable for discharge today. HOSPITAL COURSE: As above. DISCHARGE MEDICATIONS: Please see below. ALLERGIES: Please see below. PHYSICAL EXAMINATION: VITAL SIGNS: Please see below. GENERAL: No distress HEENT: Normocephalic, atraumatic, moist mucous membranes NECK: Supple CARDIOVASCULAR EXAMINATION: S1, S2, no murmurs RESPIRATORY EXAMINATION: Clear to auscultation, no wheezing ABDOMINAL EXAMINATION: Soft, nontender, nondistended, positive bowel sounds EXTREMITIES: Range of motion intact SKIN: No rash NEUROLOGICAL EXAMINATION: Alert and oriented 3, no focal deficits PSYCHIATRIC EXAMINATION: Calm and cooperative LABORATORY DATA: Please see below. IMAGING: MRI with acute evolving stroke in the left parietal cortical and subcortical deep white matter PROGNOSIS: Fair ACTIVITY: As tolerated. DIET: Cardiac DISCHARGE PLAN: Patient will follow up with neurologist, vascular surgeon and PCP DISPOSITION: Home. DISCHARGE INSTRUCTIONS: 1. As above. DISCHARGE CONDITION: Stable. TIME SPENT ON DISCHARGE: Greater than 36 minutes. Vital Signs/I&Os Vital Signs Date Time Temp Pulse Resp B/P (MAP) Pulse Ox O2 Delivery O2 Flow Rate FiO2 05/02/19 09:02 65 129/61 05/02/19 08:00 97.8 18 99 Room Air I&O- Last 24 Hours up to 6 AM 05/02/19 05:59 Intake Total 1080 ml Output Total 3000 ml Balance -1920 ml Laboratory Data Labs 24H Laboratory Tests 2 05/02/19 05:20: Nucleated Red Blood Cells % (auto) 0.0, Anion Gap 3L, Glomerular Filtration Rate 54.4, Calcium Level 8.1L, Phosphorus Level 3.0, Magnesium Level 2.0 CBC/BMP Laboratory Tests 05/02/19 05:20 Discharge Medications Scheduled Aspirin (Aspir 81) 81 Mg Tab, 81 MG PO DAILY, (Reported) Atorvastatin Calcium (Atorvastatin Calcium) 40 Mg Tab, 40 MG PO QHS, (Reported) Cholecalciferol (Vitamin D3) (Vitamin D3) 1,000 Unit Capsule, 1,000 UNIT PO D AILY, (Reported) Clopidogrel Bisulfate (Plavix) 75 Mg Tab, 75 MG PO DAILY, (Reported) Fluticasone Propion/Salmeterol (Wixela 250-50 Inhub) 1 Each Blst.w.dev, 1 EACH INH BID, (Reported) Multivitamins (Thera M Plus Tablet) 1 Tab Tab, 1 TAB PO DAILY, (Reported) Scheduled PRN Albuterol Sulfate (Proair Hfa) 108 Mcg/Act Aer, 2 PUFFS INH Q4H PRN for SHORTNESS OF BREATH, (Reported) Nitroglycerin (Nitrostat) 0.4 Mg Tab.subl, 0.4 MG SL Q5MP PRN for CHEST PAIN, (Reported) Allergies Coded Allergies: No Known Allergies (Unverified , 04/29/19) TAYLOR CERVANTES MD May 02, 2019 13:45
[2019-05-02] MEDS ORDERED: SLF 3 ML SYR IV SCH (14:00)
== END 2019-05-02 15:16 | disposition home or self-care (01) ==
LOC: M ED 15:32 → M ED INP 15:33 → M PCU 23:06
PROVIDERS: ADMIT Internal Medicine; ATTEND Internal Medicine
DX: I63.9 Cerebral infarction, unspecified (principal); I25.10 Atherosclerotic heart disease of native coronary artery without angina pectoris; Z95.1 Presence of aortocoronary bypass graft; I10 Essential (primary) hypertension; E78.49 Other hyperlipidemia; I25.6 Silent myocardial ischemia; N17.9 Acute kidney failure, unspecified; Z79.82 Long term (current) use of aspirin; Z79.899 Other long term (current) drug therapy
CPT/HCPCS: 36415; 70450; 70544; 70551; 71045; 80048; 80053; 80076; 82550; 82553; 83735; 84100; 84439; 84443; 84484; 85025; 85027; 85610; 85730; 86850; 86900; 86901; 92526; 92610; 93005; 93041; 93306; 93880; 94640; 94760; 96360; 96361; 96372; 97161; 99285; G0378

== ENCOUNTER → 2020-03-27 | Outpatient (CLI) | payer MEDICARE ==
[~2020-03-27] MED LIST changes: -ASPI81TA85 PO; +ASPI81TA86 PO; +BISO5TAB14 PO; -BISO5TAB9 PO; +FLUT1BLS2 INH; +NITR4TASL SL; +OMEP1CAP73 PO; -OMEP20CA4 PO; +VITA100054 PO
[2020-03-27 16:10] LABS: HEMATOCRIT 39.2 % (42.0-52.0); HEMOGLOBIN 12.5 g/dl (13.5-17.5); MEAN CORPUSCULAR HEMOGLOBIN 31.9 pg (27.0-33.0); MEAN CORPUSCULAR HGB CONC 31.9 g/dl (32.0-36.5); PLATELET COUNT, AUTOMATED 226 10^3/uL (150-450); RED BLOOD COUNT 3.92 10^6/uL (4.30-6.10); WHITE BLOOD COUNT 7.9 10^3/uL (4.0-10.0)
[2020-03-27 16:31] LABS: CALCIUM LEVEL 8.9 MG/DL (8.8-10.2); CREATININE FOR GFR 1.5 MG/DL (0.70-1.30); GLOMERULAR FILTRATION RATE 47.2 (>35); POTASSIUM SERUM 4.7 MEQ/L (3.5-5.1)
== END ==
LOC: M LAB 15:08
PROVIDERS: ATTEND Physician Assistant
DX: I25.10 Atherosclerotic heart disease of native coronary artery without angina pectoris (principal)

== ENCOUNTER → 2020-12-26 | Outpatient (CLI) | payer MEDICARE ==
[2020-12-26 12:49] LABS: HEMATOCRIT 40.4 % (42.0-52.0); HEMOGLOBIN 13.3 g/dl (13.5-17.5); MEAN CORPUSCULAR HEMOGLOBIN 32.7 pg (27.0-33.0); MEAN CORPUSCULAR HGB CONC 32.9 g/dl (32.0-36.5); MEAN CORPUSCULAR VOLUME 99.3 fl (80.0-96.0); PLATELET COUNT, AUTOMATED 206 10^3/uL (150-450); RED BLOOD COUNT 4.07 10^6/uL (4.30-6.10); WHITE BLOOD COUNT 7.5 10^3/uL (4.0-10.0)
[2020-12-26 13:23] LABS: ALBUMIN 4.2 GM/DL (3.2-5.2); BILIRUBIN,TOTAL 0.7 MG/DL (0.2-1.0); CALCIUM LEVEL 9.4 MG/DL (8.8-10.2); CHOLESTEROL RISK RATIO 2.551 (<5); CREATININE FOR GFR 1.55 MG/DL (0.70-1.30); GLOMERULAR FILTRATION RATE 45.4 (>35); POTASSIUM SERUM 5.1 MEQ/L (3.5-5.1); TOTAL PROTEIN 7.3 GM/DL (6.4-8.2)
== END ==
LOC: M LAB 11:41
PROVIDERS: ATTEND Physician Assistant
DX: I25.10 Atherosclerotic heart disease of native coronary artery without angina pectoris (principal)

== ENCOUNTER 2021-05-15 07:20 | Inpatient (IN) | payer MEDICARE ==
[~2021-05-15] VITALS: Ht 172.7 cm; Wt 84.7 kg
[2021-05-15 08:36] LABS: BASO # 0.1 10^3/uL (0.0-0.2); BASO % 0.7 % (0.0-1.0); EOS # 0.4 10^3/uL (0.0-0.5); EOS % 4.9 % (0.0-3.0); HEMATOCRIT 37.7 % (42.0-52.0); HEMOGLOBIN 12.1 g/dl (13.5-17.5); LYMPH # 0.9 10^3/uL (1.5-5.0); MEAN CORPUSCULAR HEMOGLOBIN 32.4 pg (27.0-33.0); MEAN CORPUSCULAR HGB CONC 32.1 g/dl (32.0-36.5); MEAN CORPUSCULAR VOLUME 101.1 fl (80.0-96.0); MONO # 0.6 10^3/uL (0.0-0.8); MONO % 7.9 % (2.0-8.0); NEUTROPHILS # 5.5 10^3/uL (1.5-8.5); NEUTROPHILS % 74.2 % (36.0-66.0); RED BLOOD COUNT 3.73 10^6/uL (4.30-6.10); WHITE BLOOD COUNT 7.4 10^3/uL (4.0-10.0)
[2021-05-15 09:02] LABS: RSV AMPLIFICATION NEGATIVE (NEGATIVE)
[2021-05-15 09:06] LABS: ALBUMIN 3.6 GM/DL (3.2-5.2); BILIRUBIN,DIRECT 0.1 MG/DL (0.0-0.2); BILIRUBIN,TOTAL 0.6 MG/DL (0.2-1.0); CK-MB VALUE MASS 2.7 NG/ML (<3.6); MB/CK RELATIVE INDEX 1.71 (< OR =4); TOTAL PROTEIN 6.6 GM/DL (6.4-8.2)
[2021-05-15 09:40] LABS: INR 0.98; PROTHROMBIN TIME 13.4 SECONDS (12.7-14.5)
[2021-05-15 09:41] LABS: PARTIAL THROMBOPLASTIN TIME 38.9 SECONDS (25.9-37.0)
[2021-05-15 11:37] LABS: CK-MB VALUE MASS 2.4 NG/ML (<3.6); MB/CK RELATIVE INDEX 3.38 (< OR =4)
[2021-05-15] MEDS ORDERED: D31000TA2 PO (11:38)
[2021-05-15] MEDS ORDERED: ASPI81TA26 PO (11:38)
[2021-05-15] MEDS ORDERED: HOME MED LIST COMPLETE! XX SCH (11:40)
[2021-05-15] MEDS ORDERED: NITROGLYCERIN 0.4 MG SUBL TABLET SL PRN (12:55)
[2021-05-15] MEDS ORDERED: ALBUTEROL 90 MCG/ACT 8GM HFA INHALER INH PRN (12:55)
[2021-05-15 17:45] VITALS: BP 145/79
[2021-05-15] MEDS: ASPIRIN 81MG ENTERIC TABLET PO SCH (18:37)
[2021-05-15] MEDS: MULTIVITAMINS/MINERALS THERAP 1 TAB PO SCH (18:38)
[2021-05-15] MEDS: VITAMIN D 1,000 INTERNATIONAL UNITS TABLET PO SCH (18:38)
[2021-05-15 20:00] VITALS: BP 136/70
[2021-05-15] MEDS: ADVAIR HFA 115/21MCG INHALER INH SCH (20:02)
[2021-05-15] MEDS: ATORVASTATIN 20 MG TAB PO SCH (20:26)
[2021-05-16 00:20] VITALS: BP 143/60
[2021-05-16 04:00] VITALS: BP 119/56
[2021-05-16 06:30] LABS: HEMATOCRIT 31.9 % (42.0-52.0); HEMOGLOBIN 10.4 g/dl (13.5-17.5); MEAN CORPUSCULAR HEMOGLOBIN 32.2 pg (27.0-33.0); MEAN CORPUSCULAR HGB CONC 32.6 g/dl (32.0-36.5); MEAN CORPUSCULAR VOLUME 98.8 fl (80.0-96.0); PLATELET COUNT, AUTOMATED 186 10^3/uL (150-450); RED BLOOD COUNT 3.23 10^6/uL (4.30-6.10); WHITE BLOOD COUNT 7.2 10^3/uL (4.0-10.0)
[2021-05-16 06:34] LABS: CALCIUM LEVEL 8.7 MG/DL (8.8-10.2); CREATININE FOR GFR 1.29 MG/DL (0.70-1.30); GLOMERULAR FILTRATION RATE 56.1 (>35); POTASSIUM SERUM 4.5 MEQ/L (3.5-5.1)
[2021-05-16] MEDS: ADVAIR HFA 115/21MCG INHALER INH SCH ×2 (07:15→19:23)
[2021-05-16 08:00] VITALS: BP 145/67
[2021-05-16] MEDS: CLOPIDOGREL 75 MG TAB PO SCH (08:57)
[2021-05-16] MEDS: ASPIRIN 81MG ENTERIC TABLET PO SCH (08:57)
[2021-05-16] MEDS: MULTIVITAMINS/MINERALS THERAP 1 TAB PO SCH (08:57)
[2021-05-16] MEDS: VITAMIN D 1,000 INTERNATIONAL UNITS TABLET PO SCH (08:57)
[2021-05-16 12:00] VITALS: BP 160/67
[2021-05-16 12:49] LABS: CK-MB VALUE MASS 1.5 NG/ML (<3.6); MB/CK RELATIVE INDEX 1.74 (< OR =4)
[2021-05-16 16:00] VITALS: BP 161/66
[2021-05-16 20:05] VITALS: BP 143/71
[2021-05-16] MEDS: ATORVASTATIN 20 MG TAB PO SCH (20:16)
[2021-05-17 00:05] VITALS: BP 175/77
[2021-05-17 04:00] VITALS: BP 112/56
[2021-05-17 06:20] LABS: HEMATOCRIT 33.7 % (42.0-52.0); HEMOGLOBIN 10.9 g/dl (13.5-17.5); MEAN CORPUSCULAR HEMOGLOBIN 32.4 pg (27.0-33.0); MEAN CORPUSCULAR HGB CONC 32.3 g/dl (32.0-36.5); MEAN CORPUSCULAR VOLUME 100.3 fl (80.0-96.0); PLATELET COUNT, AUTOMATED 176 10^3/uL (150-450); RED BLOOD COUNT 3.36 10^6/uL (4.30-6.10); WHITE BLOOD COUNT 8.5 10^3/uL (4.0-10.0)
[2021-05-17 06:37] LABS: CALCIUM LEVEL 8.5 MG/DL (8.8-10.2); CREATININE FOR GFR 1.43 MG/DL (0.70-1.30); GLOMERULAR FILTRATION RATE 49.8 (>35); POTASSIUM SERUM 4.2 MEQ/L (3.5-5.1)
[2021-05-17] MEDS: ADVAIR HFA 115/21MCG INHALER INH SCH ×2 (07:11→20:00)
[2021-05-17 08:27] VITALS: BP 134/65
[2021-05-17] MEDS: CLOPIDOGREL 75 MG TAB PO SCH (09:30)
[2021-05-17] MEDS: MULTIVITAMINS/MINERALS THERAP 1 TAB PO SCH (09:30)
[2021-05-17] MEDS: ASPIRIN 81MG ENTERIC TABLET PO SCH (09:30)
[2021-05-17] MEDS: VITAMIN D 1,000 INTERNATIONAL UNITS TABLET PO SCH (09:30)
[2021-05-17 12:54] VITALS: BP 136/90
[2021-05-17] MEDS: ATORVASTATIN 20 MG TAB PO SCH (20:07)
[2021-05-17 22:00] VITALS: BP 164/76
[2021-05-18 06:00] VITALS: BP 112/60
[2021-05-18] MEDS: ADVAIR HFA 115/21MCG INHALER INH SCH (08:49)
[2021-05-18 09:03] LABS: CALCIUM LEVEL 8.5 MG/DL (8.8-10.2); CREATININE FOR GFR 1.49 MG/DL (0.70-1.30); GLOMERULAR FILTRATION RATE 47.5 (>35); POTASSIUM SERUM 4.6 MEQ/L (3.5-5.1)
[2021-05-18] MEDS: ASPIRIN 81MG ENTERIC TABLET PO SCH (10:32)
[2021-05-18] MEDS: VITAMIN D 1,000 INTERNATIONAL UNITS TABLET PO SCH (10:32)
[2021-05-18] MEDS: CLOPIDOGREL 75 MG TAB PO SCH (10:32)
[2021-05-18] MEDS: MULTIVITAMINS/MINERALS THERAP 1 TAB PO SCH (10:32)
== END 2021-05-18 11:42 | disposition home or self-care (01) | DRG 312 ==
LOC: M ED 07:20 → M ED INP 12:54 → ENRESERV 16:50 → M PCU 17:35 → M MSPAV 05-17 17:37
PROVIDERS: ADMIT Internal Medicine; ATTEND Internal Medicine
DX: R55 Syncope and collapse (principal); J44.9 Chronic obstructive pulmonary disease, unspecified; I10 Essential (primary) hypertension; E78.5 Hyperlipidemia, unspecified; I25.10 Atherosclerotic heart disease of native coronary artery without angina pectoris; I25.2 Old myocardial infarction; Z95.5 Presence of coronary angioplasty implant and graft; Z20.822 Contact with and (suspected) exposure to COVID-19; Z79.82 Long term (current) use of aspirin; Z79.899 Other long term (current) drug therapy; S00.93XA Contusion of unspecified part of head, initial encounter; S60.221A Contusion of right hand, initial encounter; S60.222A Contusion of left hand, initial encounter; S70.01XA Contusion of right hip, initial encounter; W10.8XXA Fall (on) (from) other stairs and steps, initial encounter; Y92.009 Unspecified place in unspecified non-institutional (private) residence as the place of occurrence of the external cause

== ENCOUNTER → 2021-06-01 | Outpatient (CLI) | payer MEDICARE ==
[~2021-06-01] MED LIST changes: +ASPI81TA26 PO; +D31000TA2 PO
[2021-06-01 10:37] LABS: HEMATOCRIT 35.8 % (42.0-52.0); HEMOGLOBIN 11.5 g/dl (13.5-17.5); MEAN CORPUSCULAR HEMOGLOBIN 32.8 pg (27.0-33.0); MEAN CORPUSCULAR HGB CONC 32.1 g/dl (32.0-36.5); PLATELET COUNT, AUTOMATED 245 10^3/uL (150-450); RED BLOOD COUNT 3.51 10^6/uL (4.30-6.10); WHITE BLOOD COUNT 7.9 10^3/uL (4.0-10.0)
[2021-06-01 11:08] LABS: HEMOGLOBIN A1c 5.7 %
[2021-06-01 11:11] LABS: ALBUMIN 3.8 GM/DL (3.2-5.2); BILIRUBIN,TOTAL 0.9 MG/DL (0.2-1.0); CALCIUM LEVEL 8.9 MG/DL (8.8-10.2); CHOLESTEROL RISK RATIO 2.51 (<5); CREATININE FOR GFR 1.58 MG/DL (0.70-1.30); GLOMERULAR FILTRATION RATE 44.4 (>35); POTASSIUM SERUM 5.1 MEQ/L (3.5-5.1); PROSTATIC SPECIFIC AG MONITOR 1.3 NG/ML (< 4.00); THYROID STIMULATING HORMONE 7.12 uIU/ML (0.358-3.740); TOTAL PROTEIN 6.8 GM/DL (6.4-8.2)
== END ==
LOC: M LAB 10:01 → M EKG 10:01
PROVIDERS: ATTEND Family Medicine
DX: I10 Essential (primary) hypertension (principal); R53.83 Other fatigue; I44.0 Atrioventricular block, first degree; I44.7 Left bundle-branch block, unspecified

== ENCOUNTER → 2021-06-25 | Outpatient (REF) | payer MEDICARE, OTHER | LOC: M LAB REF 17:00 | PROVIDERS: ATTEND Dermatology | DX: D23.71 Other benign neoplasm of skin of right lower limb, including hip (principal) ==

== ENCOUNTER → 2021-07-07 | Outpatient (REF) | payer MEDICARE, OTHER ==
[~2021-07-07] MED LIST changes: -D31000TA2 PO; +VITA100093 PO
== END ==
LOC: M LAB REF 13:47
PROVIDERS: ATTEND Physician Assistant
DX: Z51.89 Encounter for other specified aftercare (principal)

== ENCOUNTER → 2022-04-20 | Outpatient (CLI) | payer MEDICARE ==
[~2022-04-20] MED LIST changes: +CLOP75TA99 PO; -DOXY-350 PO; +DOXY-444 PO; -PLAV1TAB2 PO
[2022-04-20 10:26] LABS: HEMATOCRIT 41.6 % (42.0-52.0); HEMOGLOBIN 13.4 g/dl (13.5-17.5); MEAN CORPUSCULAR HEMOGLOBIN 32.3 pg (27.0-33.0); MEAN CORPUSCULAR HGB CONC 32.2 g/dl (32.0-36.5); MEAN CORPUSCULAR VOLUME 100.2 fl (80.0-96.0); PLATELET COUNT, AUTOMATED 209 10^3/uL (150-450); RED BLOOD COUNT 4.15 10^6/uL (4.30-6.10); WHITE BLOOD COUNT 7.8 10^3/uL (4.0-10.0)
[2022-04-20 18:09] LABS: ALBUMIN 4.3 G/DL (3.2-5.2); BILIRUBIN,TOTAL 0.8 MG/DL (0.3-1.2); CALCIUM LEVEL 9.3 MG/DL (8.3-10.6); CHOLESTEROL RISK RATIO 2.76 (<5); CREATININE FOR GFR 1.47 MG/DL (0.70-1.30); GLOMERULAR FILTRATION RATE 48.1 (>35); HDL CHOLESTEROL 48.4 MG/DL (>40); POTASSIUM SERUM 4.8 MMOL/L (3.5-5.1); TOTAL PROTEIN 6.9 G/DL
== END ==
LOC: M LAB 09:39
PROVIDERS: ATTEND Physician Assistant
DX: I25.10 Atherosclerotic heart disease of native coronary artery without angina pectoris (principal); I10 Essential (primary) hypertension; E78.5 Hyperlipidemia, unspecified

== ENCOUNTER → 2023-02-23 | Outpatient (CLI) | payer MEDICARE | LOC: M RAD 13:01 | PROVIDERS: ATTEND Nurse Practitioner Family | DX: R05.3 Chronic cough (principal); R06.2 Wheezing; R06.02 Shortness of breath; I25.10 Atherosclerotic heart disease of native coronary artery without angina pectoris ==

== ENCOUNTER → 2023-02-23 | Outpatient (CLI) | payer MEDICARE | LOC: M LAB 12:59 | PROVIDERS: ATTEND Physician Assistant | DX: I25.10 Atherosclerotic heart disease of native coronary artery without angina pectoris (principal); Z53.9 Procedure and treatment not carried out, unspecified reason ==

== ENCOUNTER → 2023-02-24 | Outpatient (REF) | payer MEDICARE ==
[2023-02-24 14:13] LABS: CALCIUM LEVEL 8.9 MG/DL (8.3-10.6); CREATININE FOR GFR 1.32 MG/DL (0.70-1.30); GLOMERULAR FILTRATION RATE 54.4 (>35); POTASSIUM SERUM 4.6 MMOL/L (3.5-5.1)
== END ==
LOC: M LAB REF 13:17
PROVIDERS: ATTEND Physician Assistant
DX: I25.10 Atherosclerotic heart disease of native coronary artery without angina pectoris (principal); I10 Essential (primary) hypertension